=== PATIENT | male | born 1985 | race African-American/Black ===

== ENCOUNTER 2018-05-03 00:11 | Outpatient (CLI) | END 2018-05-03 00:30 | disposition short-term general hospital (02) | LOC: AMBL 00:11 | PROVIDERS: ATTEND Family Medicine | DX: S49.91XA Unspecified injury of right shoulder and upper arm, initial encounter (principal); S09.90XA Unspecified injury of head, initial encounter; S30.810A Abrasion of lower back and pelvis, initial encounter; V68.5XXA Driver of heavy transport vehicle injured in noncollision transport accident in traffic accident, initial encounter ==